=== PATIENT | male | born 1990 | race Caucasian/White ===

== ENCOUNTER 2020-07-07 09:29 | Emergency (ER) | payer OTHER, BC ==
[~2020-07-07] VITALS: Ht 182.9 cm; Wt 109.8 kg
[2020-07-07 09:45] VITALS: Ht 182.9 cm; Wt 109.8 kg
[2020-07-07 11:09] VITALS: BP 144/90
== END 2020-07-07 11:09 | disposition home or self-care (01) ==
LOC: ED 09:29
DX: M25.512 Pain in left shoulder (principal); V49.49XA Driver injured in collision with other motor vehicles in traffic accident, initial encounter; Y93.I9 Activity, other involving external motion; Y92.488 Other paved roadways as the place of occurrence of the external cause; Y99.8 Other external cause status